=== PATIENT | male | born 1995 | race Caucasian/White ===

== ENCOUNTER 2020-04-18 08:34 | Emergency (ER) | payer SELFPAY ==
--- NOTE | ~2020-04-18 | XR_ITS ---
EXAMINATION: XR shoulder RT min 2V INDICATION: Right shoulder pain TECHNIQUE: Four views of the right shoulder are submitted. COMPARISON: 08/15/2016 FINDINGS: Normal alignment. No fracture. Glenohumeral and acromioclavicular joint spaces are normal. Soft tissues are unremarkable. IMPRESSION: 1. No acute osseous abnormality. Reviewed, dictated and finalized at location A. L TILE LATHER
[2020-04-18 08:39] VITALS: BP 131/81; PULSE 110; RESP 16; TEMP 36.6; O2SAT 99
--- NOTE | 2020-04-18 09:17 | ED.UPPEXIN ---
HPI - Extremity Injury (Upper) General Chief Complaint: Extremity Injury, Upper Stated Complaint: r shoulder Time Seen by Provider: 04/18/20 08:51 Source: patient Mode of arrival: ambulatory Limitations: no limitations History of Present Illness HPI narrative: This patient is a 25 year old male right hand dominant who presents for evaluation of right shoulder pain. He was playing football 9 days ago. He states he was hit in his right shoulder the wrong way at that time. He has been having pain to right shoulder along his collar bone since. His pain is 3/10 until he makes a throwing motion and his pain worsens. He denies numbness or tingling or weakness. He has not been taking any medication for his pain. Related Data Home Medications Medication Instructions Recorded Confirmed No Home Medications 04/18/20 04/18/20 Allergies Allergy/AdvReac Type Severity Reaction Status Date / Time red dye Allergy Unknown Verified 08/15/16 21:41 Sour Cream Allergy Unknown Uncoded 08/15/16 21:41 Review of Systems Review of Systems: All systems reviewed & are unremarkable except as noted in HPI and below Constitutional: Constitutional: Denies chills and Denies fever(s) Musculoskeletal: Musculoskeletal: Reports arthralgias and Denies joint swelling PMFSH Past Medical History Medical History Patient denies medical problems Social History Social History (Updated 04/18/20 @ 09:19 by Karley Sifuentes MD) Smoking packs per day: 0.75 Smoking cigarettes per day: 15.0 Smoking status: Current every day smoker Exam Const: General: alert Orientation/consciousness: patient oriented x3 Eyes: EOM: EOMs intact bilaterally Resp: Effort & Inspection: normal respiratory effort Neuro: General: patient oriented x3 and moves all extremities Gait exam (Neuro): Normal gait present Extrem: Other: FROM right arm, shoulder, no swelling, no deformity. sensation intact Psych: Mental Status: mental status grossly normal Affect: normal affect Course Reevaluation(s) Reevaluation #1: I Discussed with patient that xray was unremarkable but he should follow up with PCP for possible PT. Date: 04/18/20 Time: 09:19 Vital Signs Vital signs: Vital Signs Temperature 97.8 F 04/18/20 08:39 Pulse Rate 110 H 04/18/20 08:39 Respiratory Rate 16 04/18/20 08:39 Blood Pressure 131/81 04/18/20 08:39 Pulse Oximetry 99 04/18/20 08:39 Temperature 97.8 F 04/18/20 08:39 Pulse Rate 110 H 04/18/20 08:39 Respiratory Rate 16 04/18/20 08:39 Blood Pressure 131/81 04/18/20 08:39 Pulse Oximetry 99 04/18/20 08:39 Discharge Plan Discharge Clinical Impression: Sprain of right shoulder Qualifiers: Encounter type: initial encounter Shoulder sprain type: unspecified sprain Qualified Code(s): S43.401A - Unspecified sprain of right shoulder joint, initial encounter Patient Disposition: Home, Self-Care Condition: Stable Instructions: Shoulder Sprain (ED) Additional Instructions: Today you were evaluated for a right shoulder sprain. Your xray was negative for fractures. You likely have injured a ligament. Follow up with your primary care physician for further evaluation. Prescriptions: New naproxen [Naprosyn] 500 mg tablet 500 mg PO BID PRN (Reason: pain) Qty: 20 RF: 0 No Action No Home Medications RF: 0 Follow-up/Referrals: Naveen Hernandez MD [Physician] - PHYSICIAN,DEFENSIVE LINE COACH [Primary Care Provider] -
[2020-04-18] MEDS: IBUPROFEN 400 MG TABLET 800 MG PO (09:42)
== END 2020-04-18 09:42 | disposition home or self-care (01) ==
PROVIDERS: Emergency Provider General Practice
DX: S43.401A Unspecified sprain of right shoulder joint, initial encounter (principal); F17.210 Nicotine dependence, cigarettes, uncomplicated; W51.XXXA Accidental striking against or bumped into by another person, initial encounter; Y93.61 Activity, american tackle football
CPT/HCPCS: 73030; 99283; A9270

== ENCOUNTER 2020-07-16 02:38 | Emergency (ER) | payer SELFPAY ==
--- NOTE | ~2020-07-16 | XR_ITS ---
XR wrist LT min 3V DATE: 07/16/2020 03:04 INDICATION: Left wrist pain following injury. Posterior pain and swelling. TECHNIQUE: 4 views COMPARISON: None FINDINGS: No fracture or dislocation, periosteal reaction or bone destruction. Joint spaces are prese rved. IMPRESSION: Negative Reviewed, dictated and finalized at location A. IMPRESSION: Negative
[2020-07-16 02:40] VITALS: BP 101/45; PULSE 53; RESP 18; TEMP 35.7; O2SAT 100
--- NOTE | 2020-07-16 03:04 | ED.GENADULT ---
HPI - General Adult General Chief complaint: Extremity Injury, Upper Stated complaint: Left wrist injury Time Seen by Provider: 07/16/20 02:48 History of Present Illness HPI narrative: Patient is a 25-year-old gentleman who presents the emergency department with chief complaint of left wrist pain. Patient reports he was playing football got tackled landed on his wrist and reports that he has had pain in his left wrist since the injury. Patient states it hurts whenever he moves reports no lacerations denies any paresthesias or numbness to his hand. Related Data Home Medications Medication Instructions Recorded Confirmed No Home Medications 04/18/20 04/18/20 Allergies Allergy/AdvReac Type Severity Reaction Status Date / Time red dye Allergy Unknown Unknown Verified 07/16/20 02:45 Sour Cream Allergy Unknown Unknown Uncoded 07/16/20 02:45 Review of Systems Review of Systems: Narrative: A 10 system review of systems was completed on the patient and is negative except for what is stated in the HPI. Nursing and ancillary documentation was reviewed. [facility] Past Medical History Medical History Patient denies medical problems Social History Social History Smoking packs per day: 0.75 Smoking cigarettes per day: 15.0 Smoking status: Current every day smoker Exam Narrative: Exam Narrative: GENERAL: Well-appearing, well-nourished, and in no acute distress. HEAD: Normocephalic, atraumatic. EYES: PERRLA and EOMI. ENT: Nares clear, no rhinorrhea or epistaxis. Mucous membranes moist. NECK: Supple. CHEST: Clear to auscultation. No respiratory distress. HEART: Regular rate and rhythm. No murmur heard. Normal peripheral pulses. ABDOMEN: Soft, nontender, nondistended, normal active bowel sounds. EXTREMITIES: Normal range of motion. No edema. Left wrist is tender to palpation. There is no tenderness in the anatomical snuffbox SKIN: Warm, dry, no rash. NEURO: No focal deficits. Alert and oriented x3. PSYCH: Normal mood and affect. Course Course Emergency Course: Plain film x-rays of the left wrist show no evidence of fracture Vital Signs Vital signs: Vital Signs Temperature 35.7 C L 07/16/20 02:40 Pulse Rate 53 L 07/16/20 02:40 Respiratory Rate 18 07/16/20 02:40 Blood Pressure 101/45 L 07/16/20 02:40 Pulse Oximetry 100 07/16/20 02:40 Temperature 35.7 C L 07/16/20 02:40 Pulse Rate 53 L 07/16/20 02:40 Respiratory Rate 18 07/16/20 02:40 Blood Pressure 101/45 L 07/16/20 02:40 Pulse Oximetry 100 07/16/20 02:40 Medical Decision Making Vital Signs Vital Signs: Vital Signs Temperature 35.7 C L 07/16/20 02:40 Pulse Rate 53 L 07/16/20 02:40 Respiratory Rate 18 07/16/20 02:40 Blood Pressure 101/45 L 07/16/20 02:40 Pulse Oximetry 100 07/16/20 02:40 Temperature 35.7 C L 07/16/20 02:40 Pulse Rate 53 L 07/16/20 02:40 Respiratory Rate 18 07/16/20 02:40 Blood Pressure 101/45 L 07/16/20 02:40 Pulse Oximetry 100 07/16/20 02:40 Discharge Plan Discharge Clinical Impression: Sprain and strain of wrist Patient Disposition: Home, Self-Care Condition: Stable Instructions: Antibiotic Form, Wrist Sprain (ED) Prescriptions: New ibuprofen 800 mg tablet 800 mg PO TID PRN (Reason: pain) Qty: 21 RF: 0 No Action No Home Medications RF: 0 Follow-up/Referrals: PHYSICIAN,TRAVELING ENGINEER [Primary Care Provider] - Norbert Aviles MD [Physician] - 3 Days Time of Disposition: 03:07
[2020-07-16] MEDS: IBUPROFEN 400 MG TABLET 800 MG PO (03:11)
[2020-07-16 04:15] VITALS: BP 123/67; PULSE 70; RESP 16; O2SAT 98
== END 2020-07-16 04:15 | disposition home or self-care (01) ==
PROVIDERS: Emergency Provider Emergency Medicine
DX: S63.502A Unspecified sprain of left wrist, initial encounter (principal); S66.912A Strain of unspecified muscle, fascia and tendon at wrist and hand level, left hand, initial encounter; F17.290 Nicotine dependence, other tobacco product, uncomplicated; W03.XXXA Other fall on same level due to collision with another person, initial encounter; Y93.61 Activity, american tackle football
CPT/HCPCS: 73110; 99283; A9270

== ENCOUNTER 2021-09-04 15:09 | Emergency (ER) | payer BC, SELFPAY ==
--- NOTE | ~2021-09-04 | XR_ITS ---
EXAMINATION: XR finger 1st RT min 2V INDICATION: Right first finger pain, possible foreign body TECHNIQUE: Three views of the right first finger are obtained. COMPARISON: None available FINDINGS: No radiopaque foreign body is identified. There is soft tissue swelling of the finger near the interphalangeal joint. The joint spaces are normal. There is no fracture. IMPRESSION: 1. No radiopaque foreign body or acute osseous abnormality identified. Reviewed, dictated and finalized at location A.
[2021-09-04 15:15] VITALS: BP 143/90; PULSE 98; RESP 16; TEMP 37.3; O2SAT 98
--- NOTE | 2021-09-04 15:54 | ED.SKABFB ---
HPI - Skin/Abscess/Foreign Bdy General Chief complaint: Skin/Abscess/Foreign Body Stated complaint: fb in right thumb Time Seen by Provider: 09/04/21 15:40 Source: patient, RN notes reviewed and old records reviewed Mode of arrival: ambulatory Limitations: no limitations History of Present Illness HPI narrative: 26 year old male presents to express care with complaints of patient report that he thinks he may have a foreign body in his right thumb with stated pain and some swelling to brooks aspect of 1st joint for the past 4-5 days,Patient reports that he has been working on a deck and thinks he may have a splinter in area, denies any fevers. Patient reports that tetanus is up to date. MD complaint: abscess/boil, foreign body, lesion, discoloration and other (infected wound) Onset (ago): day(s) (4-5 days) Tetanus up to date: yes Location: R hand (thumb) Treatments prior to arrival: none Related Data Allergies Allergy/AdvReac Type Severity Reaction Status Date / Time red dye Allergy Unknown Unknown Verified 07/16/20 02:45 Sour Cream Allergy Unknown Unknown Uncoded 07/16/20 02:45 Review of Systems Review of Systems: CONSTITUTIONAL: Denies fever, chills, or sweats. EYES: Denies visual changes, redness, or discharge. ENT: Denies rhinorrhea, congestion, sore throat, or otalgia. CARDIOVASCULAR: Denies chest pain, palpitations, or edema. RESPIRATORY: Denies cough or dyspnea. GASTROINTESTINAL: Denies abdominal pain, nausea, vomiting, or diarrhea. GENITOURINARY: Denies dysuria or hematuria. SKIN: Denies rash or itching. MUSCULOSKELETAL: Denies back pain,pain and swelling to the brooks aspect of his right thumb first joint pain, or myalgia. NEUROLOGIC: Denies headache, numbness, or weakness. PSYCHIATRIC: Denies anxiety or depression. 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 There is no relevant family history pertinent to the presenting complaint Exam Narrative: GENERAL: Well-appearing, well-nourished, and in no acute distress. HEAD: Normocephalic, atraumatic. EYES: PERRLA and EOMI. ENT: Nares clear, no rhinorrhea or epistaxis. Mucous membranes moist.TM's normal with good light reflex, throat pink with no lesions or exudates or tonsil swelling NECK: Supple. no lymphadenopathy CHEST: Clear to auscultation. No respiratory distress.SAO2 98% on room air no tachypnea HEART: Regular rate and rhythm. No murmur heard. Normal peripheral pulses. ABDOMEN: Soft, nontender, nondistended, normal active bowel sounds. EXTREMITIES: Normal range of motion. No edema.Right thumb swelling and pain on brooks aspect 1st joint with yellowish color to skin measuring 2.5cm X1cm at this area, pain on palpation to area, denies any tingling or numbness to right thumb or hand. SKIN: Warm, dry, no rash. NEURO: No focal deficits. Alert and oriented x3., Course Course Level of Care: Express Care Visit Vital Signs Vital signs: Vital Signs Temperature 37.3 C 09/04/21 15:15 Pulse Rate 98 09/04/21 15:15 Respiratory Rate 16 09/04/21 15:15 Blood Pressure 143/90 H 09/04/21 15:15 Pulse Oximetry 98 09/04/21 15:15 Oxygen Delivery Room Air 09/04/21 15:15 Temperature 37.3 C 09/04/21 15:15 Pulse Rate 98 09/04/21 15:15 Respiratory Rate 16 09/04/21 15:15 Blood
== END 2021-09-04 16:34 | disposition home or self-care (01) ==
PROVIDERS: Emergency Provider Registered Nurse
DX: L02.511 Cutaneous abscess of right hand (principal); F17.210 Nicotine dependence, cigarettes, uncomplicated
CPT/HCPCS: 73140; 99213; G0463

== ENCOUNTER 2023-06-14 10:19 | Emergency (ER) | payer BC, SELFPAY ==
[2023-06-14] VITALS (8 sets, daily range): BP systolic 121–166; BP diastolic 85–95; PULSE 65–92; RESP 12–19; TEMP 36.5; O2SAT 96–100
--- NOTE | ~2023-06-14 | CT_ITS ---
EXAMINATION: CT brain wo con DATE: 06/14/2023 11:21 INDICATION: Seizure TECHNIQUE: Computed tomography (CT) of the head was performed without intravenous contrast. Sagittal and coronal reconstructions were performed. The mA was adjusted according to patient size. Iterative reconstruction technique was employed. The dose-length product was 605.33 mGy-cm. COMPARISON: None FINDINGS: No acute intracranial hemorrhage, acute infarction or abnormal extra axial fluid collection. Ventricl es are normal and symmetric. No mass/mass effect. Moderate mucosal thickening the bilateral ethmoid s inuses. The orbits and mastoid air cells are normal. IMPRESSION: 1. Normal brain. No acute intracranial process. Reviewed, dictated and finalized at location A.
--- NOTE | 2023-06-14 10:38 | ED.SEIZURE ---
HPI - Seizure General Chief Complaint: Neuro Symptoms/Deficit Stated Complaint: Possible Seizure Time Seen by Provider: 06/14/23 10:31 History of Present Illness HPI Narrative: Patient is a 28-year-old male with history of opiate use disorder, reported brain cysts seen on prior head CT here with concern of possible seizure. Patient states around 630 this morning he woke up, felt his normal self, got up to grab a glass of water and laid back down in bed. He states around 8:00 a.m. this morning he woke up drenched in sweat and confused. He was concerned that he may have had a seizure. He denies any prior history of seizure. He denies any loss of bowel or bladder, no tongue biting, no witnessed seizure-like activity. He states that he continues to have some retrograde amnesia now. He additionally notes diffuse muscle aches throughout his entire body. No fever or chills. He notes he went to bed feeling like his normal self. He had one episode of near syncope in 2021 prior being incarcerated, has not had issues since. 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 HEAD: Normocephalic, atraumatic. EYES: PERRLA and EOMI. ENT: Nares clear. Mucous membranes moist. NECK: Supple. CHEST: Clear to auscultation. No respiratory distress. HEART: Regular rate and rhythm. Normal peripheral pulses. ABDOMEN: Soft, nontender, nondistended. EXTREMITIES: Normal range of motion. No edema. SKIN: Warm, dry, no rash. NEURO: No focal deficits. No upper or lower extremity drift, alert, oriented, no facial droop Alert and oriented x3. PSYCH: Normal mood and affect. Course Course Emergency Course: Chart review performed. Patient here possible seizure. Triage vitals show HTN, otherwise normal. Triage note states history of possible brain cyst. Only head CT in our system is from 11/09/15, normal exam, no fluid collection, bleed, mass seen. Patient seen evaluated, nontoxic appearing. Unremarkable neurologic exam. Suspect possible unwitnessed seizure. Will do head CT, basic lab work, IV fluids, CPK, EKG, seizure precautions. Patient agreeable. Lab work and imaging reviewed, CBC within normal limits, CMP within normal limits, minimal elevation in his CPK, he has received IV fluids here, do not believe he is in acute rhabdomyolysis. With normal renal function he should clear this without difficulty. Troponin is normal. UA negative for UTI. ETOH and UDS negative. Head CT negative, no comment on any intracranial cysts as patient believes he has been told about the past. Patient re-evaluated, in no acute distress. Continues to be alert, oriented. Advised seizure precautions at home. Will refer to Neurology. The results of pertinent diagnostic studies and exam findings were discussed. The patient?s provisional diagnosis and plan of care were discussed with the patient and present family. The patient and/or present family expressed understanding of the diagnosis and plan. The nurse was instructed to
--- NOTE | 2023-06-14 10:41 | ECG_ITS ---
SEE SCANNED COPY FOR CONFIRMED REPORT MTDD
[2023-06-14] MEDS: LACTATED RINGERS 1,000 ML 999 ML IV CONT (11:35)
[2023-06-14 11:49] LABS: Basophils Absolute Auto 0.1 K/mm3 (0.0-0.1); Basophils Percent Auto 0.8 % (0.2-1.2); Eosinophils Absolute Auto 0.3 K/mm3 (0-0.3); Eosinophils Percent Auto 3.9 % (0-4.4); Hematocrit 46.3 % (42.0-52.0); Immature Granulocyte Absolute 0.03 K/mm3 (0.00-0.031); Immature Granulocyte Percent A 0.4 % (0-0.5); Lymphocytes Absolute Auto 2.16 K/mm3 (0.9-3.2); Lymphocytes Percent Auto 25.7 % (18.3-44.2); Mean Corpuscular HGB Conc 34.6 g/dl (32-36); Mean Corpuscular Hemoglobin 30.4 pg (26-34); Mean Platelet Volume 9.5 fl (7.4-10.4); Monocytes Absolute Auto 0.5 K/mm3 (0.1-0.6); Monocytes Percent Auto 5.7 % (2.6-8.5); Neutrophils Absolute Auto 5.3 K/mm3 (1.3-6.7); Neutrophils Percent Auto 63.5 % (45.5-73.1); Platelet Count Result 335 k/mm3 (150-375); Red Blood Count 5.26 M/mm3 (4.6-6.20); White Blood Count 8.4 K/mm3 (4.5-10.0)
[2023-06-14 11:58] LABS: Creatine Kinase 573 U/L (55-170)
[2023-06-14 12:00] LABS: Alanine Aminotransferase 19 U/L (6-50); Albumin Level 4.7 g/dL (3.5-5.1); Alkaline Phosphatase 69 U/L (38-126); Anion Gap 7 mmol/L (4-12); Aspartate Amino Transferase 31 U/L (17-59); Bilirubin,Total 0.5 mg/dL (0.2-1.3); Blood Urea Nitrogen 18 mg/dL (9-20); Calcium 9.3 mg/dL (8.4-10.2); Carbon Dioxide 26 mmol/L (22-30); Chloride 107 mmol/L (98-107); Estimated CRCL calculation 130 ml/min; Estimated Glomerular Filt Rate > 60; Glucose 100 mg/dL (65-110); Magnesium 2.2 mg/dL (1.6-2.3); Potassium 4.1 mmol/L (3.4-5.0); Sodium 140 mmol/L (137-145)
[2023-06-14 12:06] LABS: Ethanol < 10 mg/dL (<10)
[2023-06-14 12:11] LABS: Troponin I < 0.012 ng/mL (0.000-0.034)
[2023-06-14 12:13] LABS: Appearance Urine Clear (Clear); Bilirubin Urine Negative (Negative); Blood Urine Negative (Negative); Color Urine Yellow (Yellow); Glucose Urine UA Negative (Negative); Ketones Urine Negative (Negative); Leukocyte Esterase Ur Negative LEU/UL (Negative); Nitrate Urine Negative (Negative); Protein Urine Negative (Negative); Specific Grav Ur 1.017 (1.001-1.035); pH Urine 6.5 (5.0-9.0)
[2023-06-14 12:21] LABS: Amphetamine Screen Urine Negative (Negative); Barbiturate Screen Urine Negative (Negative); Benzodiazepines Screen Urine Negative (Negative); Cannabinoid Screen Urine Negative (Negative); Cocaine Screen Urine Negative (Negative); Methadone Screen Urine Negative (Negative); Opiate Screen Urine Negative (Negative); Phencyclidine Screen Urine Negative (Negative)
[2023-06-14 12:41] LABS: Add Urine Microscopic? NO
== END 2023-06-14 13:11 | disposition home or self-care (01) ==
PROVIDERS: Emergency Provider Student in an Organized Health Care Education/Training Program
DX: R56.9 Unspecified convulsions (principal); J45.909 Unspecified asthma, uncomplicated; F17.210 Nicotine dependence, cigarettes, uncomplicated; Z89.022 Acquired absence of left finger(s); R94.31 Abnormal electrocardiogram [ECG] [EKG]
CPT/HCPCS: 36415; 70450; 80053; 80307; 81003; 82550; 83735; 84484; 85025; 93005; 96360; 99284; J7120

== ENCOUNTER 2024-01-29 02:20 | Emergency (ER) | payer BC, SELFPAY ==
--- NOTE | ~2024-01-29 | CT_ITS ---
EXAMINATION: CT brain wo con DATE: 01/29/2024 02:53 INDICATION: Headache TECHNIQUE: Computed tomography (CT) of the head was performed without intravenous contrast. Sagittal and coronal reconstructions were performed. The mA was adjusted according to patient size. Iterative reconstruction technique was employed. The dose-length product was 756.67 mGy-cm. COMPARISON: head CT dated 06/14/2023 FINDINGS: No acute intracranial hemorrhage, acute infarction or abnormal extra axial fluid collection. Ventricl es are normal and symmetric. No mass/mass effect. The orbits, paranasal sinuses and mastoid air cells are normal. IMPRESSION: 1. Normal head CT. Reviewed, dictated and finalized at location A. GANG SAWYER IMPRESSION: 1. Normal head CT.
--- NOTE | ~2024-01-29 | CT_ITS ---
EXAMINATION: CT cervical spine wo con DATE: 01/29/2024 02:53 INDICATION: Neck pain TECHNIQUE: Computed tomography (CT) of the cervical spine was performed without intravenous contrast. Automated exposure control and iterative reconstruction technique were employed. The dose-length pro duct was 594.48 mGy-cm. COMPARISON: Cervical spine radiographs dated 05/16/1959 FINDINGS: 15 degrees cervical levocurvature. Mild reversal of the normal cervical lordosis. Atlantoaxial interv al is normal. Vertebral body heights are normal. No fracture. Mild disc height loss at C4-C5 and C5-C 6. Mild disc bulge with minimal central canal stenosis at C5-C6. Minimal to mild cervical uncovertebr al and facet osteoarthritis. Mild neural foraminal stenosis on the right at C4-C5 and C5-C6. Cervical soft tissues are unremarkable. Visualized upper lungs are clear. IMPRESSION: 1. 15 degrees cervical levocurvature with mild spondylosis. Reviewed, dictated and finalized at location A. ONALIZED LIVING MANAGER
[2024-01-29] MEDS: diazePAM INJ (*CRX) 10 MG/2 ML SYRINGE 5 MG IM (03:08)
[2024-01-29] MEDS: HYDROcodone/acetaminophen (*CRX) 5-325 MG TABLET 1 TAB PO (03:09)
[2024-01-29] MEDS: KETOROLAC (*BKC) 60 MG/2 ML VIAL IM (03:09)
--- NOTE | 2024-01-29 03:16 | ED_ITS ---
HPI - General Adult General Chief complaint: Headache Stated complaint: tore muscle in neck, headache Time Seen by Provider: 01/29/24 02:32 History of Present Illness HPI narrative: patient is a 29-year-old gentleman presents emergency department with chief complaint of pain in right side of his neck patient reports that he was weightlifting and reports that he felt a tearing sensation in the right side of his neck patient states he feels as though his neck is spasmed on the right side patient reports he also has had a headache the patient reports no loss of consciousness reports no focal motor deficits denies numbness or tingling Related Data Allergies Allergy/AdvReac Type Severity Reaction Status Date / Time red dye Allergy Unknown Unknown Verified 06/14/23 10:28 Sour Cream Allergy Unknown Unknown Uncoded 07/16/20 02:45 Review of Systems Review of Systems: A 10 system review of systems was completed on the patient and is negative except for what is stated in the HPI. Nursing and ancillary documentation was reviewed. 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 HEAD: Normocephalic, atraumatic. EYES: PERRLA and EOMI. ENT: Nares clear, no rhinorrhea or epistaxis. Mucous membranes moist. NECK: Supple. there is a spasm present in the right side of the neck CHEST: Clear to auscultation. No respiratory distress. HEART: Regular rate and rhythm. No murmur heard. Normal peripheral pulses. ABDOMEN: Soft, nontender, nondistended, normal active bowel sounds. EXTREMITIES: Normal range of motion. No edema. SKIN: Warm, dry, no rash. NEURO: No focal deficits. Alert and oriented x3. PSYCH: Normal mood and affect. Medical Decision Making MDM Narrative Medical decision making narrative: differential diagnosis includes torticollis, cervical sprain, intracranial hemorrhage, CT head showed no acute abnormality CT C-spine showed no acute abnormality the patient be discharged on anti-inflammatories and muscle relaxers Discharge Plan Discharge Clinical Impression: Headache, Acute torticollis Patient Disposition: Home, Self-Care Condition: Stable Instructions: Antibiotic Form, Spasmodic Torticollis (ED), Acute Headache (ED) Prescriptions: New diclofenac potassium 50 mg tablet 50 mg PO TID PRN (Reason: pain) Qty: 30 0RF cyclobenzaprine 10 mg tablet 10 mg PO TID PRN (Reason: muscle spasm) Qty: 21 0RF No Action clindamycin HCl 300 mg capsule 300 mg PO Q8H Qty: 30 0RF mupirocin 2 % ointment 1 applic topical BID Qty: 22 0RF Follow-up/Referrals: PHYSICIAN,COMMERCIAL LOAN COLLECTION OFFICER [Primary Care Provider] - Norbert Aviles MD [Physician] - Time of Disposition: 03:56
[2024-01-29 04:16] VITALS: BP 128/81; PULSE 87; RESP 16; O2SAT 99
== END 2024-01-29 04:19 | disposition home or self-care (01) ==
LOC: ANHED 04:02
PROVIDERS: Emergency Provider Emergency Medicine
DX: S16.9XXA Unspecified injury of muscle, fascia and tendon at neck level, initial encounter (principal); R51.9 Headache, unspecified; J45.909 Unspecified asthma, uncomplicated; F17.210 Nicotine dependence, cigarettes, uncomplicated; Z89.022 Acquired absence of left finger(s); X50.0XXA Overexertion from strenuous movement or load, initial encounter; Y93.B3 Activity, free weights
CPT/HCPCS: 70450; 72125; 96372; 99284; A9270; J1885; J3360

== ENCOUNTER 2024-02-20 11:53 | Emergency (ER) | payer BC, SELFPAY ==
[2024-02-20 12:05] VITALS: BP 146/93; PULSE 84; RESP 18; TEMP 36.7; O2SAT 97
--- NOTE | 2024-02-20 12:40 | ED.GENADULT ---
HPI - General Adult General Chief complaint: Unspecified Stated complaint: need note to go to work Time Seen by Provider: 02/20/24 12:41 Source: patient, RN notes reviewed and old records reviewed Mode of arrival: ambulatory Limitations: no limitations History of Present Illness HPI narrative: 29-year-old female presents to the [facility] requesting a return to work note. Was seen at [facility] on the 28 of January, states he has not been to work since injury. Patient is looking for medical clearance to return States that when he was lifting weights had some pain to the right side of his neck and headache Denies any symptoms currently Related Data Allergies Allergy/AdvReac Type Severity Reaction Status Date / Time red dye Allergy Unknown Unknown Verified 02/20/24 12:13 Sour Cream Allergy Unknown Unknown Uncoded 02/20/24 12:13 Review of Systems Review of Systems: All systems reviewed & are unremarkable except as noted in HPI and below Musculoskeletal: Musculoskeletal: Reports as per HPI Integumentary/Breasts: Skin/Breast: Reports system reviewed and no additional complaints, except as docu PMFSH Past Medical History Medical History Amputation of left index finger osteomyelitis March 2021 Fracture, foot ADHD (attention deficit hyperactivity disorder) Asthma Social History Social History Smoking packs per day: 0.75 Smoking cigarettes per day: 15.0 Smoking status: Current every day smoker Tobacco type: cigarettes Alcohol intake: current Alcohol use details: social Substance use type: does not use Living arrangements: with family Gender identity (if verbalized by the patient): Male Comments At the time of my signature, I reviewed and agree with the nursing past medical, surgical, social, and family history. There is no relevant family history pertinent to the patient complaint. Exam Const: General: cooperative, healthy appearing, comfortable, no acute distress, well developed, alert and well nourished Nutritional Appearance: well nourished Orientation/consciousness: patient oriented x3 Limitations: no limitations HENMT: Head: normal to inspection Face and sinus: normal facial exam and face symmetric Eyes: General: appearance normal, both eyes and all related structures Neck: Neck: normal visual inspection and full ROM Chest: Chest palpation & inspection: normal inspection of the chest Resp: Effort & Inspection: normal respiratory effort and able to speak in complete sentences Cardio: Rate: regular rate Skin: General skin exam: normal color and no rashes or lesions noted Neuro: General: patient oriented x3, gait normal, moves all extremities and no meningeal signs Cognition (Neuro): normal cognition Speech: normal speech Gait exam (Neuro): Normal gait present Extrem: General: normal to inspection, full ROM, capillary refill normal and normal gait Psych: Appearance: grossly normal and well kempt Mental Status: mental status grossly normal Speech and movement: Normal speech and movement present and Clear speech present Affect: normal affect Attitude: cooperative Course Course Level of Care: Express Care Visit Vital Signs Vital signs: Vital Signs Temperature 98.0 F 02/20/24 12:05 Pulse Rate 84 02/20/24 12:05 Respiratory Rate 18 02/20/24 12:05 Blood Pressure 146/93 H 02/20/24 12:05 Pulse Oximetry 97 02/20/24 12:05 Oxygen Delivery Room Air 02/20/24 12:05 Temperature 98.0 F 02/20/24 12:05 Pulse Rate 84 02/20/24 12:05 Respiratory Rate 18 02/20/24 12:05 Blood Pressure 146/93 H 02/20/24 12:05 Pulse Oximetry 97 02/20/24 12:05 Oxygen Delivery Room Air 02/20/24 12:05 Reviewed Medical Decision Making MDM Narrative Medical decision making narrative: Patient sitting comfortably in exam room. Nontoxic, vitals stable. Patient in no acute distress Patient presents for a medical clearance post injury 1 month ago. Explained that we do not to this, patient then got up and left. Some parts of this dictation were generated by voice recognition software and may contain typographical and/or grammatical inaccuracies. Medical Records Medical records reviewed: Yes I reviewed the external patient's medical records. Vital Signs Vital Signs: Vital Signs Temperature 98.0 F 02/20/24 12:05 Pulse Rate 84 02/20/24 12:05 Respiratory Rate 18 02/20/24 12:05 Blood Pressure 146/93 H 02/20/24 12:05 Pulse Oximetry 97 02/20/24 12:05 Oxygen Delivery Room Air 02/20/24 12:05 Temperature 98.0 F 02/20/24 12:05 Pulse Rate 84 02/20/24 12:05 Respiratory Rate 18 02/20/24 12:05 Blood Pressure 146/93 H 02/20/24 12:05 Pulse Oximetry 97 02/20/24 12:05 Oxygen Delivery Room Air 02/20/24 12:05 Reviewed Lab Data Lab results reviewed: Yes I reviewed the patient's lab results. Labs: Reviewed Critical Care Time Critical Care Time Critical Care Time: No Discharge Plan Discharge Clinical Impression: Adult wellness visit Patient Disposition: Elopement After Seen by Prov Condition: Stable Instructions: Antibiotic Form Patient Language: Telugu Prescriptions: No Action clindamycin HCl 300 mg capsule 300 mg PO Q8H Qty: 30 0RF mupirocin 2 % ointment 1 applic topical BID Qty: 22 0RF diclofenac potassium 50 mg tablet 50 mg PO TID PRN (Reason: pain) Qty: 30 0RF cyclobenzaprine 10 mg tablet 10 mg PO TID PRN (Reason: muscle spasm) Qty: 21 0RF Follow-up/Referrals: PHYSICIAN,[facility] [Primary Care Provider] -
== END 2024-02-20 12:48 | disposition left against medical advice (07) ==
PROVIDERS: Emergency Provider Nurse Practitioner
DX: Z00.00 Encounter for general adult medical examination without abnormal findings (principal); F17.210 Nicotine dependence, cigarettes, uncomplicated; J45.909 Unspecified asthma, uncomplicated
CPT/HCPCS: 99211; G0463